=== PATIENT | female | born 1970 | race Caucasian/White ===

== ENCOUNTER → 2016-07-14 | Outpatient (CLI) | payer BC ==
--- NOTE | 2016-07-14 14:29 | US ---
EXAMINATION TYPE: US venous doppler duplex LE LT DATE OF EXAM: 07/14/2016 2:09 PM COMPARISON: NONE CLINICAL HISTORY: Left Leg pain SIDE PERFORMED: Left VESSELS IMAGED: External Iliac Vein (EIV) Common Femoral Vein Deep Femoral Vein Greater Saphenous Vein * Femoral Vein Popliteal Vein Small Saphenous Vein * Proximal Calf Veins (* superficial vessels) Left Leg: Negative for DVT, please note PTV's were also imaged TECHNOLOGIST IMPRESSION: Results called to [facility] at [facility] at time of exam IMPRESSION: 1. No deep venous thrombosis evident on ultrasound
== END | disposition home or self-care (01) ==
LOC: RADUSWWP 13:46
PROVIDERS: ATTEND Physical Medicine & Rehabilitation
DX: M79.605 Pain in left leg (principal); R60.9 Edema, unspecified

== ENCOUNTER 2021-01-09 09:13 | Emergency (ER) | payer BC, OTHER ==
[2021-01-09 09:18] VITALS: TEMP 97.5
--- NOTE | 2021-01-09 10:24 | XR ---
Lumbosacral spine HISTORY: Left leg numbness, low back pain 5 views lumbosacral spine There is no evident spondylolysis or spondylolisthesis. Lumbar vertebral bodies show preserved height , alignment, bone mineralization. Disc spaces are reduced at L5-S1, L2-3 and L1-2. Sclerosis is prese nt in the posterior elements of the lower lumbar spine. Atherosclerotic vascular calcifications prese nt within the aorta iliac distribution. IMPRESSION: Degenerative disc disease. No acute fracture or subluxation. Consider lumbar MRI.
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
[2021-01-09 11:37] VITALS: BP 136/79; PULSE 89; RESP 16
== END 2021-01-09 11:36 | disposition home or self-care (01) ==
LOC: EC 09:13
DX: S80.12XA Contusion of left lower leg, initial encounter (principal); X58.XXXA Exposure to other specified factors, initial encounter; F17.200 Nicotine dependence, unspecified, uncomplicated
CPT/HCPCS: 72110; 99284

== ENCOUNTER → 2021-01-30 | Outpatient (CLI) | payer OTHER ==
--- NOTE | 2021-01-31 03:51 | MR ---
EXAMINATION TYPE: MR knee LT wo con DATE OF EXAM: 01/30/2021 COMPARISON: None HISTORY: Left inner kneepain, painful kneecap, and swelling for 3 weeks due to fall. Multiplanar multiecho imaging of the left knee with no contrast. There is subcutaneous edema over the anterior knee. There is some subcutaneous fluid on the anterior medial aspect of the knee. This measures up to 7 mm in thickness. There is abnormal increased signal on the T2 images in the medial femoral condyle consistent with a bone bruise. I see no fracture line. Proximal tibia is intact. The patella appears intact. The collateral ligaments are intact. The anterior and posterior cruciate ligaments are intact. There is small horizontal oblique tear through the posterior horn of the medial meniscus extending to the inferior surface. Anterior horn of the medial meniscus appears intact. The lateral meniscus appears intact. There is no evidence of any significant joint effusion. IMPRESSION: Large subcutaneous fluid collection over the medial anterior knee consistent with hematoma and seroma . Subcutaneous edema over the anterior medial knee. Mild bone bruise involving the medial femoral con dyle. No fracture seen. Oblique and horizontal tear posterior horn medial meniscus. No evidence of ligamentous tear.
== END | disposition home or self-care (01) ==
LOC: RADMRIMAIN 07:13
PROVIDERS: ATTEND Orthopaedic Surgery
DX: M23.322 Other meniscus derangements, posterior horn of medial meniscus, left knee (principal); R60.0 Localized edema; S80.02XA Contusion of left knee, initial encounter

== ENCOUNTER → 2021-07-12 | Outpatient (CLI) | payer OTHER ==
--- NOTE | 2021-07-12 12:56 | CT ---
EXAMINATION TYPE: CT chest w con DATE OF EXAM: 07/12/2021 COMPARISON: None HISTORY: 51-year-old female R10.13, R07.1, Chest pains TECHNIQUE: Contiguous axial scanning of the chest after the administration of 100 mL of Isovue 300. Coronal/sagittal reconstructions performed. CT DLP: 137.0mGycm. Automatic exposure control utilized for a dose reduction. FINDINGS: Heart normal size with trace anterior pericardial thickening/fluid. Aorta normal caliber with conventional arch vessel branching anatomy. No thoracic lymphadenopathy by CT. Mild diffuse bronchial wall thickening. Mild biapical pleural-parenchymal scarring. Minimal centrilob ular emphysema. No consolidation or pleural effusion. Visualized upper abdomen shows no gross abnormality. Bones: Cervical spondylosis partially visualized. No osseous destructive process. IMPRESSION: 1. COPD with mild emphysema. 2. Mild anterior pericardial thickening/fluid. Correlate clinically to exclude the possibility of a n onspecific mild pericarditis. 3. No acute pulmonary process.
== END | disposition home or self-care (01) ==
LOC: RADCTMAIN 12:09
PROVIDERS: ATTEND Family Medicine
DX: J43.9 Emphysema, unspecified (principal); I31.8 Other specified diseases of pericardium
CPT/HCPCS: 71260; Q9967

== ENCOUNTER 2023-05-21 18:32 | Emergency (ER) | payer OTHER ==
[2023-05-21] MEDS ORDERED: FAMOTIDINE 20 MG/2 ML VIAL IV STA (18:40)
[2023-05-21] MEDS ORDERED: DEXAMETHASONE SOD PHOSPHATE 10 MG/ML 1 ML VIAL IVP STA (18:40)
[2023-05-21] MEDS ORDERED: diphenhydrAMINE 50 MG/ML 1 ML VIAL IVP STA (18:40)
[2023-05-21] MEDS ORDERED: GLUCAGON 1 MG/ML VIAL IVP STA (18:48)
[2023-05-21] MEDS ORDERED: LORazepam 2 MG/ML INJ IV STA (18:48)
[2023-05-21] MEDS ORDERED: SODIUM CHLORIDE 0.9% 1,000 ML IV STA ×2 (18:48)
[2023-05-21] MEDS ORDERED: ONDANSETRON 4 MG/2 ML VIAL IVP STA (18:54)
--- NOTE | 2023-05-21 18:56 | ED ---
ENT HPI - General Stated complaint: Allgeric Reaction Time Seen by Provider: 05/21/23 18:36 Source: RN notes reviewed, old records reviewed, Caregiver Limitations: no limitations, language barrier - History of Present Illness Initial comments: This is a 53-year-old female with difficulty with speech currently. Patient states she cannot catch her breath is having significant and severe anxiety currently, she was eating dinner when this all occurred. Uncertain of possible ALLERGY, patient states she didn't feel like she swallowed a flu completely but currently feels like there is something stuck in her throat. Patient is nauseous without vomiting, she cannot tolerate her secretions and keeps spitting up her saliva MD complaint: sore throat, epistaxis -: hour(s) Location: throat Severity: moderate Severity scale (1-10): 5 Quality: aching Consistency: constant Improves with: none Worsens with: swallowing, eating Associated Symptoms: cough, pain with swallowing, sore throat - Related Data Home Medications Medication Instructions Recorded Confirmed Cyclobenzaprine [Flexeril] 10 mg PO Q8H PRN 01/09/21 01/09/21 HYDROcodone/APAP 5-325MG [[place] 1 tab PO Q6HR PRN 01/09/21 01/09/21 5-325] Ibuprofen [Motrin] 600 mg PO Q8HR PRN 01/09/21 01/09/21 Allergies Allergy/AdvReac Type Severity Reaction Status Date / Time sulfamethoxazole Allergy Swelling Verified 05/21/23 19:05 [From Bactrim] trimethoprim [From Bactrim] Allergy Swelling Verified 05/21/23 19:05 Review of Systems ROS Statement: Those systems with pertinent positive or pertinent negative responses have been documented in the HPI. ROS Other: All systems not noted in ROS Statement are negative. Past Medical History Past Medical History: No Reported History History of Any Multi-Drug Resistant Organisms: None Reported Past Surgical History: No Surgical Hx Reported Past Psychological History: No Psychological Hx Reported Smoking Status: Current every day smoker Past Alcohol Use History: Occasional Past Drug Use History: None Reported General Exam General appearance: anxious, in distress Head exam: Present: atraumatic, normocephalic, normal inspection Eye exam: Present: normal appearance, PERRL, EOMI. Absent: scleral icterus, conjunctival injection, periorbital swelling ENT exam: Present: normal exam, mucous membranes moist Neck exam: Present: normal inspection. Absent: tenderness, meningismus, lymphadenopathy Respiratory exam: Present: normal lung sounds bilaterally. Absent: respiratory distress, wheezes, rales, rhonchi, stridor Cardiovascular Exam: Present: regular rate, normal rhythm, normal heart sounds. Absent: systolic murmur, diastolic murmur, rubs, gallop, clicks GI/Abdominal exam: Present: soft, normal bowel sounds. Absent: distended, tenderness, guarding, rebound, rigid Extremities exam: Present: normal inspection, full ROM, normal capillary refill. Absent: tenderness, pedal edema, joint swelling, calf tenderness Back exam: Present: normal inspection Neurological exam: Present: alert, oriented X3, CN II-XII intact Psychiatric exam: Present: normal affect, normal mood Skin exam: Present: warm, dry, intact, normal color. Absent: rash Course Vital Signs 05/21/23 05/21/23 05/21/23 19:02 19:51 20:30 Temperature 97 F L Pulse Rate 98 109 H 80 Respiratory 20 21 19 Rate Blood Pressure 145/94 143/92 125/81 O2 Sat by Pulse 95 96 95 Oximetry 05/21/23 05/21/23 20:50 21:26 Temperature 98.5 F Pulse Rate 79 20 L Respiratory 18 16 Rate Blood Pressure 112/66 117/82 O2 Sat by Pulse 99 98 Oximetry - Reevaluation(s) Reevaluation #1: Medical records reviewed Reevaluation #2: Patient symptoms are improved Reevaluation #3: Patient informed results questions answered Reevaluation #4: Was pt. sent in by a medical professional or institution (, PA, ELEMENTARY EDUCATION TUTOR, urgent care, hospital, or longterm...) When possible be specific @ -no Did you speak to anyone other than the patient for history (EMS, parent, family, police, friend...)? What history was obtained from this source @ -no Did you review nursing and triage notes (agree or disagree)? Why? @ -agree Are old charts reviewed (outside hosp., previous admission, EMS record, old EKG, old radiological studies, urgent care reports/EKG's, longterm records)? Report findings @ -yes Differential Diagnosis (chest pain, altered mental status, abdominal pain women, abdominal pain men, vaginal bleeding, weakness, fever, dyspnea, syncope, headache, dizziness, GI bleed, back pain, seizure, CVA, palpatations, mental health, musculoskeletal)? @ -prior EKG interpreted by me (3pts min.). @ -yes X-rays interpreted by me (1pt min.). @ -yes CT interpreted by me (1pt min.). @ -no U/S interpreted by me (1pt. min.). @ -no What testing was considered but not performed or refused? (CT, X-rays, U/S, labs)? Why? @ -none What meds were considered but not given or refused? Why? @ -none Did you discuss the management of the patient with other professionals (professionals i.e. , PA, ELEMENTARY EDUCATION TUTOR, lab, RT, psych nurse, social services, regulatory submissions specialist, teacher, communications officer, adult protective caseworker)? Give summary @ -no Was smoking cessation discussed for >3mins.? @ -no Was critical care preformed (if so, how long)? @ -no Were there social determinants of health that impacted care today? How? (Homelessness, low income, unemployed, alcoholism, drug addiction, transportation, low edu. Level, literacy, decrease access to med. care, care home, rehab)? @ -none Was there de-escalation of care discussed even if they declined (Discuss DNR or withdrawal of care, Hospice)? DNR status @ -no What co-morbidities impacted this encounter? (DM, HTN, Smoking, COPD, CAD, Cancer, CVA, ARF, Chemo, Hep., AIDS, mental health diagnosis, sleep apnea, morbid obesity)? @ -none Was patient admitted / discharged? Hospital course, mention meds given and route, prescriptions, significant lab abnormalities, going to OR and other pe rtinent info. @ - 53 female who presents with what was maybe ALLERGIC reaction. Patient does have esophageal food bolus, this issue is resolved here in the ER patient feels well. Discharge Undiagnosed new problem with uncertain prognosis? @ -no Drug Therapy requiring intensive monitoring for toxicity (Heparin, Nitro, Insulin, Cardizem)? @ -no Were any procedures done? @ -no Diagnosis/symptom? @ -Esophageal foreign body, resolved Acute, or Chronic, or Acute on Chronic? @ -Acute Uncomplicated (without systemic symptoms) or Complicated (systemic symptoms)? @ -Complicated Side effects of treatment? @ -no Exacerbation, Progression, or Severe Exacerbation? @ -exacerbation Poses a threat to life or bodily function? How? (Chest pain, [place], MA, pneumonia, PE, COPD, DKA, ARF, appy, cholecystitis, CVA, Diverticulitis, Homicidal, Suicidal, threat to staff... and all critical care pts) @ -yes with esophageal for body impending airway obstruction Medical Decision Making - Medical Decision Making 53 female who presents with what was maybe ALLERGIC reaction. Patient does have esophageal food bolus, this issue is resolved here in the ER patient feels well. - Lab Data Result diagrams: 05/21/23 19:34 05/21/23 19:34 Lab Results 05/21/23 05/21/23 05/21/23 Range/Units 19:34 19:34 19:34 WBC 4.3 (3.8-10.6) k/uL RBC 3.70 L (3.80-5.40) m/uL Hgb 13.1 (11.4-16.0) gm/dL Hct 38.0 (34.0-46.0) % MCV 102.6 H (80.0-100.0) fL MCH 35.3 H (25.0-35.0) pg MCHC 34.4 (31.0-37.0) g/dL RDW 12.9 (11.5-15.5) % Plt Count 255 (150-450) k/uL MPV 7.3 Neutrophils % 63 % Lymphocytes % 26 % Monocytes % 8 % Eosinophils % 1 % Basophils % 1 % Neutrophils # 2.7 (1.3-7.7) k/uL Lymphocytes # 1.1 (1.0-4.8) k/uL Monocytes # 0.3 (0-1.0) k/uL Eosinophils # 0.0 (0-0.7) k/uL Basophils # 0.0 (0-0.2) k/uL Macrocytosis Slight PT 10.3 (10.0-12.5) sec INR 0.9 (<1.2) APTT 22.3 (22.0-30.0) sec Sodium 136 L (137-145) mmol/L Potassium 3.7 (3.5-5.1) mmol/L Chloride 99 (98-107) mmol/L Carbon Dioxide 20 L (22-30) mmol/L Anion Gap 17 mmol/L BUN 15 (7-17) mg/dL Creatinine 0.78 (0.52-1.04) mg/dL Est GFR (CKD-EPI)AfAm >90 (>60 ml/min/1.73 sqM) Est GFR (CKD-EPI)NonAf 88 (>60 ml/min/1.73 sqM) Glucose 148 H (74-99) mg/dL Calcium 8.7 (8.4-10.2) mg/dL Phosphorus 3.1 (2.5-4.5) mg/dL Magnesium 1.8 (1.6-2.3) mg/dL Total Bilirubin 0.5 (0.2-1.3) mg/dL AST 89 H (14-36) U/L ALT 114 H (4-34) U/L Alkaline Phosphatase 75 (38-126) U/L Troponin I (0.000-0.034) ng/mL Total Protein 7.2 (6.3-8.2) g/dL Albumin 4.5 (3.5-5.0) g/dL Serum Alcohol 160 mg/dL 05/21/23 Range/Units 19:34 WBC (3.8-10.6) k/uL RBC (3.80-5.40) m/uL Hgb (11.4-16.0) gm/dL Hct (34.0-46.0) % MCV (80.0-100.0) fL MCH (25.0-35.0) pg MCHC (31.0-37.0) g/dL RDW (11.5-15.5) % Plt Count (150-450) k/uL MPV Neutrophils % % Lymphocytes % % Monocytes % % Eosinophils % % Basophils % % Neutrophils # (1.3-7.7) k/uL Lymphocytes # (1.0-4.8) k/uL Monocytes # (0-1.0) k/uL Eosinophils # (0-0.7) k/uL Basophils # (0-0.2) k/uL Macrocytosis PT (10.0-12.5) sec INR (<1.2) APTT (22.0-30.0) sec Sodium (137-145) mmol/L Potassium (3.5-5.1) mmol/L Chloride (98-107) mmol/L Carbon Dioxide (22-30) mmol/L Anion Gap mmol/L BUN (7-17) mg/dL Creatinine (0.52-1.04) mg/dL Est GFR (CKD-EPI)AfAm (>60 ml/min/1.73 sqM) Est GFR (CKD-EPI)NonAf (>60 ml/min/1.73 sqM) Glucose (74-99) mg/dL Calcium (8.4-10.2) mg/dL Phosphorus (2.5-4.5) mg/dL Magnesium (1.6-2.3) mg/dL Total Bilirubin (0.2-1.3) mg/dL AST (14-36) U/L ALT (4-34) U/L Alkaline Phosphatase (38-126) U/L Troponin I <0.012 (0.000-0.034) ng/mL Total Protein (6.3-8.2) g/dL Albumin (3.5-5.0) g/dL Serum Alcohol mg/dL - EKG Data -: EKG Interpreted by Me (EKG is sinus tachycardia 106 [place] 121 QRS 76 QTC 390) - Radiology Data Radiology results: report reviewed (Chest x-rays negative for acute disease), image reviewed Disposition Clinical Impression: Esophageal foreign body, Anxiety Disposition: HOME SELF-CARE Condition: Good Instructions (If sedation given, give patient instructions): Esophageal Foreign Body (ED) Is patient prescribed a controlled substance at d/c from ED?: No Referrals: None,Stated [REFERRING] - 1-2 days Time of Disposition: 21:10
[2023-05-21 19:42] LABS: Basophils % (A) 1 %; Eosinophils % (A) 1 %; HGB 13.1 gm/dL (11.4-16.0); Lymphocytes # (A) 1.1 k/uL (1.0-4.8); Lymphocytes % (A) 26 %; MCH 35.3 pg (25.0-35.0); MCHC 34.4 g/dL (31.0-37.0); MCV 102.6 fL (80.0-100.0); Macrocytosis Slight; Mean Platelet Volume 7.3; Monocytes # (A) 0.3 k/uL (0-1.0); Monocytes % (A) 8 %; Neutrophils # (A) 2.7 k/uL (1.3-7.7); Neutrophils % (A) 63 %; Platelet Count 255 k/uL (150-450); RDW 12.9 % (11.5-15.5); WBC 4.3 k/uL (3.8-10.6)
[2023-05-21 19:56] LABS: INR 0.9 (<1.2); Partial Thromboplastin Time 22.3 sec (22.0-30.0); Prothrombin Time 10.3 sec (10.0-12.5)
[2023-05-21 19:57] LABS: ALT 114 U/L (4-34); AST 89 U/L (14-36); African American GFR (CKD) >90 (>60 ml/min/1.73 sqM); Albumin 4.5 g/dL (3.5-5.0); Alkaline Phosphatase 75 U/L (38-126); Anion Gap 17 mmol/L; Blood Urea Nitrogen 15 mg/dL (7-17); Calcium 8.7 mg/dL (8.4-10.2); Carbon Dioxide 20 mmol/L (22-30); Chloride 99 mmol/L (98-107); Glucose 148 mg/dL (74-99); Magnesium 1.8 mg/dL (1.6-2.3); Non-African American GFR(CKD) 88 (>60 ml/min/1.73 sqM); Phosphorus 3.1 mg/dL (2.5-4.5); Potassium 3.7 mmol/L (3.5-5.1); Sodium 136 mmol/L (137-145); Total Bilirubin 0.5 mg/dL (0.2-1.3); Total Protein 7.2 g/dL (6.3-8.2)
[2023-05-21 20:08] LABS: Alcohol 160 mg/dL
[2023-05-21 21:31] VITALS: BP 117/82; PULSE 20; RESP 16; TEMP 98.5
--- NOTE | 2023-05-21 21:51 | XR ---
EXAM: XR chest 1V portable CLINICAL INDICATION:Female, 53 years old with history of allergic reaction/FB; [facility] COMPARISON: CT chest from 07/12/2021 TECHNIQUE: Chest single view. FINDINGS: Lines/tubes/devices: EKG leads and other extrinsic structures overlie the chest. No indwelling lines. Cardiomediastinum: Cardiac silhouette appears normal in size. Mildly tortuous aorta. Unremarkable mediastinal silhouette. Vasculature: No increased pulmonary vasculature. Lungs/pleura: No consolidation, sizeable effusion, or visible pneumothorax. Possible mild bibasilar atelectasis. Bones/soft tissues: Bony thorax appears grossly intact as seen. Regional soft tissues appear unremarkable. IMPRESSION: No acute cardiopulmonary findings.
== END 2023-05-21 21:35 | disposition home or self-care (01) ==
LOC: EC 18:32
DX: T18.128A Food in esophagus causing other injury, initial encounter (principal); F41.9 Anxiety disorder, unspecified; F17.200 Nicotine dependence, unspecified, uncomplicated; Z88.2 Allergy status to sulfonamides; Z88.1 Allergy status to other antibiotic agents; W44.F3XA Food entering into or through a natural orifice, initial encounter
CPT/HCPCS: 99284; 96374; 96375 ×5; 96361 ×2; 36415; 93005; 80053; 83735; 84100; 84484; 85025; 85610; 85730; 71045; G0480; J2060; J1200; J1610; J1100; J2405; J3490; 80320; 99285